=== PATIENT | female | born 1955 | race Caucasian/White ===

== ENCOUNTER 2020-12-14 07:20 | Observation (INO) | payer MEDICARE ==
[2020-12-11 14:06] LABS: INTERNATIONAL NORMALIZED RATIO 0.97 (0.93-1.1); PROTHROMBIN TIME 10.4 Seconds (9.6-11.5)
[~2020-12-14] VITALS: Ht 165.1 cm; Wt 79.9 kg
[~2020-12-14 07:20] MED LIST: AMINO ACID PO; BUDE10.22 INH; CHONDROITIN PO; COD LIVER OIL PO; EPINEPHRINE 1 MG/ML, 1ML ONE; FISH OIL PO; KETOROLAC 60 MG/2 ML ONE; LEVO200T PO; MULT-672 PO; ROPIvacaine/PF 0.2%, 20 ML ONE; SODIUM CHLORIDE 0.9% 50 ML ONE; TRANEXAMIC ACID 100 MG/ML, 10ML ONE; TURMERIC PO; VANCOMYCIN 1,000 MG ONE; VITA1TAB19 PO; VITAMIN A PO; VITAMIN C PO; VITAMIN D PO; VITAMIN E PO
[2020-12-14 07:43] VITALS: BP 112/72
[2020-12-14] MEDS ORDERED: CHLORHEXIDINE 15 ML UDC MM ONE (08:00)
[2020-12-14] MEDS ORDERED: GABAPENTIN 300 MG CAPSULE PO ONE (08:00)
[2020-12-14] MEDS ORDERED: ACETAMINOPHEN 500 MG TABLET PO ONE (08:00)
[2020-12-14] MEDS ORDERED: LACTATED RINGERS 1,000 ML IV SCH (08:00)
[2020-12-14] MEDS ORDERED: MIDAZOLAM 1 MG/ML, 2ML ONE (10:16)
[2020-12-14] MEDS ORDERED: FENTANYL PF 250 MCG/5ML ONE (10:16)
[2020-12-14] MEDS ORDERED: TRANEXAMIC ACID 100 MG/ML, 10ML ONE (10:18)
[2020-12-14] MEDS ORDERED: ROCURONIUM 10MG/ML,5ML ONE (10:21)
[2020-12-14] MEDS ORDERED: CEFAZOLIN 1,000 MG ONE (10:21)
[2020-12-14] MEDS ORDERED: PROPOFOL 10 MG/ML, 20ML ONE (10:21)
[2020-12-14] MEDS ORDERED: HYDROcodone/APAP 5/325 TABLET PO PRN (10:30)
[2020-12-14] MEDS ORDERED: METOCLOPRAMIDE 10MG TABLET PO PRN (10:30)
[2020-12-14] MEDS ORDERED: DIPHENHYDRAMINE 50 MG CAPSULE PO PRN (10:30)
[2020-12-14] MEDS ORDERED: ONDANSETRON 2MG/ML, 2ML IVPush PRN ×2 (10:30→12:30)
[2020-12-14] MEDS ORDERED: PROMETHAZINE 12.5 MG SUPP PR PRN ×2 (10:30→12:30)
[2020-12-14] MEDS ORDERED: SENNA/DOCUSATE TABLET PO PRN (10:30)
[2020-12-14] MEDS ORDERED: DIPHENHYDRAMINE 50 MG/ML, 1ML IVPush PRN ×2 (10:30→12:30)
[2020-12-14] MEDS ORDERED: POLYETHYLENE GLYCOL 17 GM PACKET PO PRN (10:30)
[2020-12-14] MEDS ORDERED: HYDROmorphone 1 MG/ML, 1ML INJ IVPush PRN (10:30)
[2020-12-14] MEDS ORDERED: ACETAMINOPHEN 650 MG/20.3 ML UDC PO PRN (10:30)
[2020-12-14] MEDS ORDERED: ALUMINUM/MAG/SIMETHICONE 30 ML UDC PO PRN (10:30)
[2020-12-14] MEDS ORDERED: TRANEXAMIC ACID 1,000 MG in SODIUM CHLORIDE 0.9% 100 ML IVPB ONE (10:30)
[2020-12-14] MEDS ORDERED: MAGNESIUM HYDROXIDE 8%, 30ML UDC PO PRN (10:30)
[2020-12-14] MEDS ORDERED: DEXAMETHASONE 4 MG/ML, 1ML ONE (10:36)
[2020-12-14] MEDS ORDERED: ONDANSETRON 2MG/ML, 2ML ONE ×2 (11:31)
[2020-12-14] MEDS ORDERED: SUGAMMADEX 200 MG/2 ML IVPush ONE (11:31)
[2020-12-14] MEDS ORDERED: FENTANYL PF 100 MCG/2ML ONE (12:10)
[2020-12-14] MEDS ORDERED: OXYcodone 5 MG/5 ML ORAL.SOL UDC ONE (12:10)
[2020-12-14] MEDS: FENTANYL PF 100 MCG/2ML IV PRN ×2 (12:13→12:19)
[2020-12-14] MEDS ORDERED: HYDROmorphone 1 MG/ML, 1ML INJ ONE (12:14)
[2020-12-14] MEDS: HYDROmorphone 1 MG/ML, 1ML INJ IVPush PRN ×2 (12:25→12:46)
[2020-12-14] MEDS ORDERED: MEPERIDINE/PF 25MG/0.5ML IVPush PRN (12:30)
[2020-12-14] MEDS ORDERED: ALBUTEROL SULFATE 2.5 MG/3 ML NPPB PRN (12:30)
[2020-12-14] MEDS ORDERED: OXYcodone 5 MG/5 ML ORAL.SOL UDC PO PRN (12:30)
[2020-12-14] MEDS ORDERED: hydrALAzine 20 MG/ML, 1ML IV PRN (12:30)
[2020-12-14] MEDS ORDERED: MIDAZOLAM 1 MG/ML, 2ML IV PRN (12:30)
[2020-12-14] MEDS ORDERED: LABETALOL 5MG/ML, 20ML IV PRN (12:30)
[2020-12-14] MEDS ORDERED: EPHEDRINE 50 MG/ML, 1ML IVPush PRN (12:30)
[2020-12-14] MEDS ORDERED: DIAZEPAM 5 MG/ML, 2ML IVPush PRN (12:30)
[2020-12-14] MEDS ORDERED: PROMETHAZINE 25 MG/ML, 1ML IVPush PRN (12:30)
[2020-12-14] MEDS ORDERED: HYDROcodone/APAP 7.5-325MG/15ML UDC ONE (12:33)
[2020-12-14] MEDS ORDERED: DIAZEPAM 5 MG/ML, 2ML ONE (12:46)
[2020-12-14] MEDS ORDERED: HYDROcodone/APAP 7.5-325MG/15ML UDC PO PRN (13:00)
[2020-12-14 13:45] VITALS: BP 108/63
[2020-12-14] MEDS ORDERED: KETOROLAC 30 MG/1 ML IV SCH (14:30)
[2020-12-14] MEDS ORDERED: ONDANSETRON 4 MG TABLET PO PRN (14:30)
[2020-12-14] MEDS ORDERED: CEFAZOLIN PMX 1GM/50ML 50 ML IVPB SCH (14:30)
[2020-12-14] MEDS ORDERED: KETOROLAC 30 MG/1 ML ONE (16:25)
[2020-12-14] MEDS: KETOROLAC 30 MG/1 ML IV SCH ×2 (16:30→23:58)
[2020-12-14] MEDS: D5%-0.45NACL+KCL 20MEQ 1,000 ML IV SCH (16:31)
[2020-12-14] MEDS: CEFAZOLIN PMX 1GM/50ML 50 ML IVPB SCH (18:48)
[2020-12-14 19:07] VITALS: BP 101/66
[2020-12-14] MEDS: SYMBICORT 80-4.5 MCG INHALER HOMEINH SCH (20:43)
[2020-12-14] MEDS: ASPIRIN 81 MG TABLET EC PO SCH (20:48)
[2020-12-14] MEDS: DOCUSATE 100 MG CAPSULE PO SCH (20:49)
[2020-12-14 23:43] VITALS: BP 102/58
[2020-12-15] MEDS: D5%-0.45NACL+KCL 20MEQ 1,000 ML IV SCH ×2 (02:30→11:06)
[2020-12-15] MEDS: CEFAZOLIN PMX 1GM/50ML 50 ML IVPB SCH (02:43)
[2020-12-15 03:08] VITALS: BP 106/54
[2020-12-15] MEDS ORDERED: LEVOTHYROXINE 200 MCG TABLET PO SCH (06:00)
[2020-12-15] MEDS ORDERED: DEXAMETHASONE 4 MG/ML, 1ML IVPush ONE (06:00)
[2020-12-15 07:30] VITALS: BP 135/68
[2020-12-15] MEDS: ASPIRIN 81 MG TABLET EC PO SCH (07:49)
[2020-12-15] MEDS: KETOROLAC 30 MG/1 ML IV SCH (07:49)
[2020-12-15] MEDS: DOCUSATE 100 MG CAPSULE PO SCH (07:50)
[2020-12-15] MEDS: SYMBICORT 80-4.5 MCG INHALER HOMEINH SCH (07:51)
[2020-12-15] MEDS ORDERED: TAMSULOSIN 0.4 MG CAP.ER.24H PO SCH (09:00)
[2020-12-15] MEDS ORDERED: ASPI-963 PO (09:13)
[2020-12-15] MEDS ORDERED: MELO7.5T5 PO (09:14)
[2020-12-15] MEDS ORDERED: DOCU-131 PO (09:14)
[2020-12-15] MEDS ORDERED: ONDA4TAB7 PO (09:15)
[2020-12-15] MEDS ORDERED: TRAM100T39 PO (09:21)
[2020-12-15] MEDS ORDERED: HYDR-3237 PO (09:22)
[2020-12-15 12:30] VITALS: BP 126/71
== END 2020-12-15 14:20 | disposition home or self-care (01) ==
LOC: OUT 07:20 → ORIP 10:10 → 4NE 13:37 → DCLOUNGE 12-15 14:04
PROVIDERS: ADMIT Orthopaedic Surgery; ATTEND Orthopaedic Surgery
DX: M16.12 Unilateral primary osteoarthritis, left hip (principal); Z20.822 Contact with and (suspected) exposure to COVID-19; J45.909 Unspecified asthma, uncomplicated; K21.9 Gastro-esophageal reflux disease without esophagitis; G47.33 Obstructive sleep apnea (adult) (pediatric); I44.7 Left bundle-branch block, unspecified; Z87.891 Personal history of nicotine dependence; Z79.899 Other long term (current) drug therapy
CPT/HCPCS: 27130; 36415; 72170; 83036; 85014; 85018; 85610; 85730; 86850; 86900; 87081; 87806; 93005; 96361; 96365; 96366; 96375; 96376; 97110; 97161; 97165; 97530; C1713; C1776; G0378; J0171; J0690; J1100; J1170; J1885; J2250; J2405; J2704; J2795; J3010; J3480; J7120; U0003; J3370; G0475